=== PATIENT | female | born 1985 | race African-American/Black ===

== ENCOUNTER 2017-02-16 12:33 | Emergency (ER) | payer OTHER ==
[~2017-02-16] VITALS: Ht 167.6 cm; Wt 63.5 kg
== END 2017-02-16 13:44 | disposition home or self-care (01) ==
LOC: CED 12:33 → CFTX 12:33
DX: N61.0 Mastitis without abscess (principal)
CPT/HCPCS: 99283

== ENCOUNTER 2017-03-18 16:46 | Emergency (ER) | payer OTHER ==
--- NOTE | ~2017-03-18 | CR72 ---
[facility] A Service of [facility] & [facility] RADIOLOGY TEXT RESULTS PATIENT: SHEN LAMB LOCATION: [facility] : 87 UNIT #: [id number] AGE: [address]: Partha Mendez DO SEX: F ORDER DR: [id number] [facility] [address] [place], [place] [address] [id number] E MR#: [id number] Acc #: [id number] NAME: SHEN LAMB : 1985 SEX: F STUDY DATE/TIME: 03/18/2017 18:56 UNIT: [facility] ROOM: STUDY DESCRIPTION: CR Chest Single View Portable Attending Physician: Partha Mendez D.O. Ordering Physician: Partha Mendez D.O. Primary Care Physician: Primary Care Physician No MEDICAL IMAGING REPORT This report is preliminary unless electronic signature is present EXAM Portable chest HISTORY Shortness of air for 1 week. FINDINGS A single AP portable view of the chest shows both lungs to be clear. The heart is normal in size. The mediastinal contour is normal. No significant bone abnormalities are seen. IMPRESSION Normal portable chest. Dictated by... Dinh Serna M.D. THIS IS AN ELECTRONICALLY VERIFIED REPORT Dinh Serna M.D. at 03/19/2017 11:44 PM PHUC/michelle TD: 03/19/2017 08:17 JOB #: [id number] MEDICAL IMAGING REPORT Page 1 of 1 COPY
[2017-03-18 18:49] LABS: BASOPHIL% 0.3 % (0-2.5); EOSINOPHIL# 0.6 X10e3 (0-0.7); EOSINOPHIL% 4.7 % (0.0-7.0); HEMATOCRIT 36.1 % (35.0-45.0); HEMOGLOBIN 11.3 gm/dL (12.0-16.0); LYMPHOCYTE% 7.8 % (17.0-45.0); MEAN CELL VOLUME 78.1 FL (83-96); MEAN CORPUSCULAR HEMOGLOBIN 24.5 PG (28-34); MEAN CORPUSCULAR HGB CONC 31.4 g/dL (30-36); MEAN PLATELET VOLUME 8.8 FL (6.5-11.5); MONOCYTE# 0.4 X10e3 (0-1.0); MONOCYTE% 3.2 % (3.0-12.0); NEUTROPHIL# 11.1 X10e3 (1.5-7.1); PLATELET COUNT 243 X10e3 (140-420); RED BLOOD COUNT 4.62 X10e (3.90-5.30); WHITE BLOOD COUNT 13.1 X10e3 (4.0-10.5)
[2017-03-18 18:51] LABS: POC - CKMB 4.4 ng/mL (0.0-7.9); POC - TROPONIN <0.05 ng/mL (<=0.05)
[2017-03-18 18:53] LABS: DIFF IND YES
[2017-03-18 18:58] LABS: INR 1.1; PARTIAL THROMBOPLASTIN TIME 25.8 SECONDS (23.5-31.3); PROTHROMBIN TIME (PATIENT) 12.4 SECONDS (10.0-11.7)
[2017-03-18 18:59] LABS: ALBUMIN SERUM 3.9 g/dL (3.5-5.0); ALKALINE PHOSPHATASE 58 U/L (32-92); ALT (SGPT) 20 U/L (10-40); AST (SGOT) 25 U/L (10-42); BILIRUBIN,TOTAL 0.3 mg/dL (0.2-2.0); BLOOD UREA NITROGEN 13 mg/dL (9-23); BUN/CREATININE RATIO 18.57; CALCIUM SERUM 8.6 mg/dL (8.4-10.2); CARBON DIOXIDE 21 mmol/L (22-31); CHLORIDE 105 mmol/L (100-111); CREATININE SERUM 0.7 mg/dL (0.6-1.4); GLOM FILT RATE Estimated 134.8 mL/min (>60); GLUCOSE FASTING 118 mg/dL (70-110); POTASSIUM 3.5 mmol/L (3.5-5.1); PROTEIN TOTAL SERUM 7.5 g/dL (6.0-8.3); SODIUM 135 mmol/L (135-145)
[2017-03-18 19:03] LABS: BILIRUBIN, DIRECT <0.1 mg/dL (0.0-0.2); BILIRUBIN,INDIRECT 0.2 mg/dL (0.0-0.9)
[2017-03-18 19:06] LABS: ANISOCYTOSIS MOD; PLATELET ESTIMATE NORMAL (NORMAL)
[2017-03-18 19:07] LABS: MICROCYTOSIS SL
== END 2017-03-18 20:33 | disposition home or self-care (01) ==
LOC: CED 16:46
PROVIDERS: Emergency Medicine
DX: J45.901 Unspecified asthma with (acute) exacerbation (principal)
CPT/HCPCS: 36415; 71010; 80048; 80076; 82553; 84484; 85025; 85379; 85610; 85730; 94640; 99285

== ENCOUNTER 2017-04-14 22:25 | Emergency (ER) | payer OTHER ==
--- NOTE | ~2017-04-14 | CR72 ---
[facility] A Service of [facility] & [facility] RADIOLOGY TEXT RESULTS PATIENT: SHEN LAMB LOCATION: [facility] : 87 UNIT #: [id number] AGE: [address]: Alexsander Nguyen MD SEX: F ORDER DR: [id number] [facility] [address] [place], [place] [address] [id number] E MR#: [id number] Acc #: [id number] NAME: SHEN LAMB : 1985 SEX: F STUDY DATE/TIME: 04/14/2017 23:44 UNIT: [facility] ROOM: STUDY DESCRIPTION: CR Chest Single View Portable Attending Physician: Alexsander Nguyen M.D. Ordering Physician: Alexsander Nguyen M.D. Primary Care Physician: No Primary Care Physician MEDICAL IMAGING REPORT This report is preliminary unless electronic signature is present EXAM Portable chest, 04/14/2017, 23:44. INDICATIONS Nausea, vomiting, epigastric pain, shortness of air tonight. FINDINGS AP portable chest compared with 03/18/2017. There is borderline cardiomegaly. Lungs are clear. Vascularity is normal. There is no pneumothorax. IMPRESSION Borderline cardiac enlargement. No acute findings. Dictated by... Ryan Hernández Jr., M.D. THIS IS AN ELECTRONICALLY VERIFIED REPORT Ryan Hernández Jr., M.D. at 04/15/2017 9:16 PM ANDREY/merlin TD: 04/15/2017 14:37 JOB #: [id number] MEDICAL IMAGING REPORT Page 1 of 1 COPY
== END 2017-04-15 01:18 | disposition short-term general hospital (02) ==
LOC: CED 22:25
DX: R07.89 Other chest pain (principal); I10 Essential (primary) hypertension
CPT/HCPCS: 71010; 94640; 99285